=== PATIENT | female | born 1995 ===

== ENCOUNTER 2017-06-29 14:15 | Emergency (ER) | payer MEDICAID, OTHER ==
[2017-06-29 15:07] VITALS: BMI 29.4
[2017-06-29 15:15] VITALS: RESP 18
[2017-06-29 15:28] VITALS: BP 101/68; PULSE 60; TEMP 98.2; O2SAT 100
--- NOTE | 2017-06-29 15:45 | ED PDOC ---
Arrival/HPI - General Chief Complaint: Finger,Hand,&Wrist Time Seen by Provider: 06/29/17 15:36 Historian: Patient - History of Present Illness Narrative History of Present Illness (Text): 06/29/17 15:58 21-year-old female presents today with left fourth finger pain status post injury. Patient states yesterday she was playing football and bent her finger backwards. Patient is complaining of pain to the distal aspect of the finger. Patient denies numbness weakness or tingling in the extremities. No medications have been taken for pain. Patient is refusing any medications for pain. Patient is complaining of increasing pain and swelling to the distal aspect of the finger. No other complaints Past Medical History - Provider Review Nursing Documentation Reviewed: Yes - Travel History Have you recently traveled outside [place] w/in the past 3 mons?: No - Cardiac Hx Cardiac Disorders: No - Pulmonary Hx Respiratory Disorders: No - Neurological Hx Neurological Disorder: No - HEENT Hx HEENT Disorder: No - Renal Hx Renal Disorder: No - Endocrine/Metabolic Hx Endocrine Disorders: No - Hematological/Oncological Hx Blood Disorders: No - Psychiatric Hx Substance Use: No Family/Social History - Physician Review Nursing Documentation Reviewed: Yes Family/Social History: Unknown Family HX Smoking Status: Never Smoked Hx Alcohol Use: No Hx Substance Use: No Allergies/Home Meds Allergies/Adverse Reactions: Allergies No Known Allergies Allergy (Verified 06/29/17 15:06) Home Medications: Home Meds Medication Instructions Recorded Confirmed No Known Home Med 06/29/17 06/29/17 Review of Systems - Review of Systems Constitutional: absent: Fatigue, Fevers Respiratory: absent: SOB, Cough Cardiovascular: absent: Chest Pain, Palpitations Gastrointestinal: absent: Abdominal Pain, Nausea, Vomiting Musculoskeletal: Arthralgias Skin: absent: Rash, Pruritis Neurological: absent: Headache, Dizziness Psychiatric: absent: Anxiety, Depression Physical Exam Vital Signs Reviewed: Yes Vital Signs Temp Pulse Resp BP Pulse Ox 06/29/17 15:28 98.2 F 60 18 101/68 100 06/29/17 15:07 98.5 F 80 18 96/64 L 98 Temperature: Afebrile Blood Pressure: Normal Pulse: Regular Respiratory Rate: Normal Appearance: Positive for: Well-Appearing, Non-Toxic, Comfortable Pain Distress: None Mental Status: Positive for: Alert and Oriented X 3 - Systems Exam Head: Present: Atraumatic Mouth: Present: Moist Mucous Membranes Respiratory/Chest: Present: Clear to Auscultation Cardiovascular: Present: Regular Rate and Rhythm Upper Extremity: Present: NORMAL PULSES, Tenderness (left 4th finger; + ttp and edema and ecchymosis noted to distal phalanx. sensation and distal pulses intact. cap refill <2. ), Swelling, Neurovascularly Intact, Capillary Refill < 2s. No: Normal ROM, Erythema, Deformity Neurological: Present: GCS=15, Speech Normal Skin: Present: Warm, Dry, Normal Color. No: Rashes Psychiatric: Present: Alert, Oriented x 3 Medical Decision Making ED Course and Treatment: 06/29/17 16:10 Patient is nontoxic well-appearing in no distress. vital signs are stable. pt refusing medications for pain XRAY finger; + fracture, distal phalanx left 4th finger finger splint applied. I discussed all results in depth with the patient advised follow-up with the orthopedist within the next 2 days. I've advised me to return if symptoms worsen persist or if new concerning symptoms develop Patient verbalizes understanding of discharge instructions and need for immediate followup. all aspects of this case were discussed the attending of record. IMPRESSION: fracture, finger Motrin every 6 hours as needed for pain Use finger splint Follow up with primary care physician within the next 2 days Follow up with the orthopedist within the next 2 days Return if symptoms worsen persist or if new symptoms develop - RAD Interpretation Radiology Orders: 06/29/17 15:36 HAND LEFT 4TH DIGIT (FINGER) [RAD] Stat Disposition/Present on Arrival - Present on Arrival Any Indicators Present on Arrival: No History of DVT/PE: No History of Uncontrolled Diabetes: No Urinary Catheter: No History of Decub. Ulcer: No History Surgical Site Infection Following: None - Disposition Have Diagnosis and Disposition been Completed?: Yes Diagnosis: Fracture, finger Disposition: HOME/ ROUTINE Disposition Time: 16:11 Patient Plan: Discharge Condition: GOOD Discharge Instructions (ExitCare): Finger Fracture (DC) Additional Instructions: Motrin every 6 hours as needed for pain Use finger splint Follow up with primary care physician within the next 2 days Follow up with the orthopedist within the next 2 days Return if symptoms worsen persist or if new symptoms develop Referrals: Johny Wilson MD [Primary Care Provider] - Follow up with primary Kostas Betts III, MD [Medical Doctor] - Follow up with primary Dino Pham MD [Staff Provider] - Follow up with primary Chaka Wilson DO [Staff Provider] - Follow up with primary [facility] [place] [Outside] - Follow up with primary Forms: [facility] (Ecuadorean), WORK NOTE
--- NOTE | 2017-06-29 17:08 | RAD ---
PROCEDURE: Left ring finger radiographs. HISTORY: jammed left 4th finger; pain to distal/middle pha COMPARISON: None. TECHNIQUE: AP radiograph of the left hand, as well as spot oblique and lateral images of left ring finger were obtained. FINDINGS: LEFT RING FINGER: Acute transverse fracture affecting the proximal aspect of the distal phalanx. Ori remarked, the finding is best seen on lateral view. Remainder of the left hand (as seen on the AP view) is grossly unremarkable. JOINTS: Normal. SOFT TISSUES: Soft tissue swelling attests to the acuity of the fracture. OTHER FINDINGS: None. IMPRESSION: Acute transverse fracture distal phalanx 4th digit. Concordant results with the preliminary interpretation rendered by the emergency department physician procedure.
== END 2017-06-29 16:32 | disposition home or self-care (01) ==
LOC: ED 14:15
DX: S62.635A Displaced fracture of distal phalanx of left ring finger, initial encounter for closed fracture (principal); X50.0XXA Overexertion from strenuous movement or load, initial encounter; Y93.61 Activity, american tackle football; Y92.39 Other specified sports and athletic area as the place of occurrence of the external cause

== ENCOUNTER 2017-11-30 13:39 | Emergency (ER) | payer MEDICAID ==
[2017-11-30 13:40] VITALS: BMI 29.4
[2017-11-30 14:09] VITALS: TEMP 98.8; O2SAT 99
--- NOTE | 2017-11-30 14:14 | ED PDOC ---
Arrival/HPI - General Chief Complaint: Abdominal Pain Time Seen by Provider: 11/30/17 13:41 Historian: Patient - History of Present Illness Narrative History of Present Illness (Text): 21 yr old female p/w abdominal pain, nausea. Pt notes abdominal pain started 3d ago, suprapubic, without radiation, felt like a pressure. No dysuria, urgency or frequency. No chest pain or sob. No constipation or diarrhea. Last BM was yesterday, non dark, non bloody. No fever, chills or night sweats. LMP Late august. Pt has not seen OB yet and goes to ob clinic. x1 vomiting episode today in the morning, non bilious, non dark. No vaginal d/c No other complaints. Past Medical History - Infectious Disease Hx of Infectious Diseases: None - Cardiac Hx Cardiac Disorders: No - Pulmonary Hx Respiratory Disorders: No - Neurological Hx Neurological Disorder: No - HEENT Hx HEENT Disorder: No - Renal Hx Renal Disorder: No - Endocrine/Metabolic Hx Endocrine Disorders: No - Hematological/Oncological Hx Blood Disorders: No - Psychiatric Hx Substance Use: No - Anesthesia Hx Anesthesia: No Family/Social History Family/Social History: Unknown Family HX Smoking Status: Never Smoked Hx Alcohol Use: No Hx Substance Use: No Allergies/Home Meds Allergies/Adverse Reactions: Allergies No Known Allergies Allergy (Verified 06/29/17 15:06) Review of Systems - Review of Systems Constitutional: absent: Fatigue Eyes: absent: Vision Changes ENT: absent: Hearing Changes Respiratory: absent: SOB, Cough Cardiovascular: absent: Chest Pain, Palpitations Gastrointestinal: Abdominal Pain, Vomiting Genitourinary Female: absent: Dysuria, Frequency, Other Musculoskeletal: absent: Arthralgias Skin: absent: Rash, Pruritis, Skin Lesions Neurological: absent: Headache, Dizziness Endocrine: absent: Diaphoresis Hemo/Lymphatic: absent: Adenopathy Psychiatric: absent: Anxiety Physical Exam Vital Signs Reviewed: Yes Vital Signs Temp Pulse Resp BP Pulse Ox 11/30/17 14:04 98.8 F 98 H 18 98/76 L 99 - Systems Exam Head: Present: Atraumatic, Normocephalic Pupils: Present: PERRL Extroacular Muscles: Present: EOMI Conjunctiva: Present: Normal Ears: Present: Normal Mouth: Present: Moist Mucous Membranes, Normal Lips. No: Drooling, Trismus Pharnyx: Present: Normal. No: ERYTHEMA, EXUDATE, TONSILS ENLARGED Nose (External): Present: Atraumatic Neck: Present: Normal Range of Motion. No: Meningeal Signs, MIDLINE TENDERNESS Respiratory/Chest: Present: Clear to Auscultation. No: Good Air Exchange, Respiratory Distress Cardiovascular: Present: Regular Rate and Rhythm, Normal S1, S2. No: Murmurs Abdomen: Present: Tenderness (epgastric), Normal Bowel Sounds. No: Peritoneal Signs, Rebound, Guarding, McBurney's Point Tender, Rovsing's Sign Present Back: Present: Normal Inspection. No: CVA Tenderness Upper Extremity: Present: Normal Inspection. No: Cyanosis, Edema Lower Extremity: Present: Normal Inspection, NORMAL PULSES. No: Edema, CALF TENDERNESS Neurological: Present: GCS=15, CN II-XII Intact, Speech Normal Skin: Present: Warm, Dry Psychiatric: Present: Alert, Oriented x 3 Medical Decision Making ED Course and Treatment: 21 F at approx. 10 week presents with suprapubic abd pain, non rlq, non umbilical, non rosvings or mucburneys. Throbbing, without radiation. Likely associated pain. No vaginal bleeding or D/C. Will seek imaging, labs and pain control. 11/30/17 17:15 R ovarian cyst 1.7cm, @ 12 weeks w/ normal HR. abd pain. RLQ remains non-ttp. No peritoneal signs. clear for d/c home w/ abx script for UTI. No CVAT. - RAD Interpretation Radiology Orders: 11/30/17 14:06 TRANSVAGINAL [US] Stat - Medication Orders Current Medication Orders: Acetaminophen (Tylenol 325mg Tab) 650 mg PO STAT STA Stop: 11/30/17 14:08 Sodium Chloride (Sodium Chloride 0.9%) 1,000 mls @ 100 mls/hr IV .Q10H ENA Disposition/Present on Arrival - Present on Arrival Any Indicators Present on Arrival: No History of DVT/PE: No History of Uncontrolled Diabetes: No Urinary Catheter: No History of Decub. Ulcer: No History Surgical Site Infection Following: None - Disposition Have Diagnosis and Disposition been Completed?: Yes Diagnosis: Abdominal pain in , UTI (urinary tract infection) Disposition: HOME/ ROUTINE Disposition Time: 17:17 Condition: GOOD Discharge Instructions (ExitCare): Urinary Tract Infections in Adults, Acute Abdomen (Belly Pain) Additional Instructions: Take tylenol for your abdominal pain as written on the bottle. DEYSI ROLDAN, thank you for letting us take care of you today. Your provider was Pito Sagastume and you were treated for PAIN. The emergency medical care you received today was directed at your acute symptoms. If you were prescribed any medication, please fill it and take as directed. It may take several days for your symptoms to resolve. Return to the Emergency Department if your symptoms worsen, do not improve, or if you have any other problems. Please contact your doctor or call one of the physicians/clinics you have been referred to that are listed on the Patient Visit Information form that is included in your discharge packet. Bring any paperwork you were given at discharge with you along with any medications you are taking to your follow up visit. Our treatment cannot replace ongoing medical care by a primary care provider outside of the emergency department. Thank you for allowing the [facility] team to be part of your care today. If you had an X-Ray or CT scan: A Radiologist will review the ED reading if any change in treatment is needed we will contact you. If you had a blood, urine, or wound culture: It will take several days for the results, if any change in treatment is needed we will contact you. If you had an STI test: It will take 48 hours for the results. Please call after 1 week if you have not heard back. Prescriptions: Nitrofurantoin Macrocrystal [Nitrofurantoin Macrocrystals] 100 mg PO BID 5 Days #10 cap Referrals: Patricia Chung MD [Staff Provider] - Follow up with primary Jessica To MD [Medical Doctor] - Follow up with primary Forms: [employer] (Latvian)
[2017-11-30] MEDS ORDERED: Sodium Chloride 0.9% 1,000 ML IV SCH (14:15)
--- NOTE | 2017-11-30 15:38 | US ---
Date of service: 11/30/2017 PROCEDURE: OB Pelvic Ultrasound HISTORY: LMP: COMPARISON: None available. FINDINGS: UTERUS: Gestational sac: Single intrauterine gestation. Heart rate: 162 bpm. Gestational sac diameter corresponds to 11 weeks 4 days. [place]-rump length corresponds to 12 weeks 3 days. age (Ultrasound estimated): 12 weeks 0 days [place]-gestational hemorrhage: None. Date of delivery (Ultrasound estimated) : 06/14/2018 4 mm yolk sac identified. Uterus measures 11.3 x 7.8 x 8.7 cm. Normal in size and appearance. CERVIX: Measures 3.5 cm. Long and closed. No cervical abnormality seen. RIGHT OVARY: Measures 3.5 x 3.0 x 1.4 cm. No mass lesion. Normal flow. Pedunculated simple cyst versus para ovarian cyst, 1.4 cm. LEFT OVARY: Measures 4.0 x 2.4 x 3.3 cm. No solid mass. Normal flow. FREE FLUID: None. OTHER FINDINGS: None. IMPRESSION: Single live intrauterine gestation of approximately 12 weeks 0 days. heart rate 162. No perigestational hemorrhage. Cervix long and closed. Incidental 1.4 cm simple right paraovarian cyst versus pedunculated ovarian cyst.
[2017-11-30 15:42] LABS: URINE BILIRUBIN NEGATIVE (NEGATIVE); URINE BLOOD NEGATIVE (NEGATIVE); URINE GLUCOSE (UA) NEGATIVE (NEGATIVE); URINE LEUKOCYTE ESTERASE NEGATIVE Leu/uL (NEGATIVE); URINE PROTEIN TRACE mg/dL (<30 mg/dL); URINE UROBILINOGEN 0.2 E.U./dL (<1 E.U./dL)
[2017-11-30 15:43] LABS: URINE APPEARANCE CLEAR (CLEAR); URINE COLOR YELLOW (YELLOW)
[2017-11-30 16:40] LABS: BLOOD UREA NITROGEN 9 mg/dL (7-21); GFR NON-AFRICAN AMERICAN > 60
[2017-11-30 16:41] LABS: ALB/GLOB RATIO 1.4 (1.1-1.8); ALBUMIN 4.1 g/dL (3.0-4.8); ALT/SGPT 32 U/L (7-56); AST/SGOT 22 U/L (14-36); CALCIUM 9.3 mg/dL (8.4-10.5); LIPASE 49 U/L (23-300)
[2017-11-30 17:02] LABS: BASO % 0.3 % (0.0-3.0); EOS % 0.9 % (1.5-5.0); GRAN # 10.74 (1.4-6.5); GRAN % 77.3 % (50.0-68.0); HEMOGLOBIN 11.5 g/dL (12.0-16.0); LYMPH # 2.4 (1.2-3.4); LYMPH % 17.2 % (22.0-35.0); MEAN CELL VOLUME 87.2 fl (80.0-105.0); MEAN CORPUSCULAR HEMOGLOBIN 30.7 pg (25.0-35.0); MEAN CORPUSCULAR HGB CONC 35.3 g/dl (31.0-37.0); MEAN PLATELET VOLUME 9.7 fl (7.0-11.0); MONO # 0.6 (0.1-0.6); MONO % 4.3 % (1.0-6.0); RBC 3.74 10^6/uL (3.5-6.1); RED CELL DISTRIBUTION WIDTH 12.4 % (11.5-14.5); WHITE BLOOD COUNT 13.9 10^3/ul (4.5-11.0)
[2017-11-30 17:03] LABS: BASO # 0.04 K/mm3 (0.0-2.0); EOS # 0.1 (0.0-0.7)
[2017-11-30 17:49] VITALS: BP 107/66; PULSE 77; RESP 16
== END 2017-11-30 17:44 | disposition home or self-care (01) ==
LOC: ED 13:39
DX: O23.41 Unspecified infection of urinary tract in pregnancy, first trimester (principal); Z3A.12 12 weeks gestation of pregnancy; R10.9 Unspecified abdominal pain
CPT/HCPCS: 76817; 80053; 81001; 83690; 84702; 85025; 86850; 86900; 96360; 96361; 99282; J7030